=== PATIENT | female | born 1975 | race Caucasian/White ===

== ENCOUNTER 2022-05-28 07:09 | Day surgery (SDC) | payer OTHER ==
[2022-05-24 14:58] VITALS: BMI 50.8
[2022-05-28] MEDS ORDERED: PROPOFOL 40 ML ONE (07:52)
== END 2022-05-28 10:30 | disposition home or self-care (01) ==
LOC: CSHSDC 07:09
PROVIDERS: ATTEND Internal Medicine Gastroenterology
PROC: 0DBL8ZZ Excision of Transverse Colon, Via Natural or Artificial Opening Endoscopic (ICD-10-PCS; principal; 2022-05-28)
DX: Z12.11 Encounter for screening for malignant neoplasm of colon (principal); D12.3 Benign neoplasm of transverse colon; K57.30 Diverticulosis of large intestine without perforation or abscess without bleeding; K64.9 Unspecified hemorrhoids; F17.210 Nicotine dependence, cigarettes, uncomplicated; I25.10 Atherosclerotic heart disease of native coronary artery without angina pectoris; J44.9 Chronic obstructive pulmonary disease, unspecified; E78.5 Hyperlipidemia, unspecified; F32.A Depression, unspecified; E66.9 Obesity, unspecified; Z68.43 Body mass index [BMI] 50.0-59.9, adult; G47.33 Obstructive sleep apnea (adult) (pediatric); Z79.899 Other long term (current) drug therapy; Z79.02 Long term (current) use of antithrombotics/antiplatelets
CPT/HCPCS: 88305; J2704